=== PATIENT | male | born 1955 | race Caucasian/White ===

== ENCOUNTER 2023-12-19 07:08 | Day surgery (SDC) | payer OTHER ==
[~2023-12-19] VITALS: Ht 182.9 cm; Wt 128.2 kg
[2023-12-19] MEDS ORDERED: ZOCOR20 MG PO (07:40)
[2023-12-19] MEDS ORDERED: LEVSOD100 PO (07:41)
[2023-12-19] MEDS ORDERED: FLUDROCORTISON0.1 M1 PO (07:42)
[2023-12-19] MEDS ORDERED: XYZAL5 MG PO (07:43)
[2023-12-19] MEDS ORDERED: Hydrocortisone10 MG PO (07:43)
[2023-12-19] MEDS ORDERED: DIPH25 (07:45)
[2023-12-19] MEDS ORDERED: Lactated Ringer's 1,000 ML IV ONE ×2 (07:55→07:57)
[2023-12-19] MEDS ORDERED: FentaNYL Citrate 50 MCG/ML 2 ML Injection ONE (08:01)
[2023-12-19] MEDS ORDERED: propofoL 20 ML IV ONE ×2 (08:01)
[2023-12-19] MEDS ORDERED: CeFAZolin Sodium 3,000 MG in NS 100 ML IV SCH (08:05)
[2023-12-19] MEDS ORDERED: CeFAZolin Sodium 2,000 MG VIAL ONE (08:23)
[2023-12-19] MEDS ORDERED: CeFAZolin Sodium 1000 mg Vial ONE ×2 (08:23→08:56)
[2023-12-19] MEDS ORDERED: NS 50 ML IV ONE (08:24)
--- NOTE | 2023-12-19 08:36 | NUR ---
12/19/23 0836 DEIDRA ARAUZ PT ORDERS WERE FOR 3GM ANCEF PREOP; PHARMACY DIDNT HAVE IT MADE IN TIME. ANESTHESIOLOGIST DR FALLON ASKED FOR PT ANCEF 2GM TO ADD TO ANCEF 1GM HE HAS IN OR TO COMPLETE THE ANCEF 3GM TOTAL ORDERED SO TO NOT HOLD PROCEDURE UP LONGER.
[2023-12-19] MEDS ORDERED: Lidocaine 2%-Epineph 1:100000 20 ML MDV INJ ONE (08:53)
[2023-12-19] MEDS ORDERED: Ondansetron HCl 2 MG / ML 2ML Vial ONE (08:56)
[2023-12-19] MEDS ORDERED: Dexamethasone Sod Phos 10 MG/ML 1ML VIAL ONE (08:56)
[2023-12-19] MEDS ORDERED: Ketorolac Tromethamine 30mg Vial ONE (08:56)
[2023-12-19] MEDS ORDERED: HYDROcodone 5-APAP 325 TAB ONE (09:31)
--- NOTE | 2023-12-19 10:31 | NUR ---
12/19/23 1031 Micheal Dorsey PT REPORTED TOLERABLE PAIN UPON D/C. HE APPEARED ALERT, TALKATIVE, AND RELAXED. HE DENIED NAUSE AND EXPRESSED READINESS TO RETURN HOME.
[2023-12-19 10:39] VITALS: BP 110/82
== END 2023-12-19 10:00 | disposition home or self-care (01) ==
LOC: ORSCSDS 07:08
PROVIDERS: Orthopaedic Surgery
PROC: 0JBJ0ZX Excision of Right Hand Subcutaneous Tissue and Fascia, Open Approach, Diagnostic (ICD-10-PCS; principal; 2023-12-19 08:15)
DX: D21.11 Benign neoplasm of connective and other soft tissue of right upper limb, including shoulder (principal); J45.909 Unspecified asthma, uncomplicated; E03.9 Hypothyroidism, unspecified; E27.1 Primary adrenocortical insufficiency; Z79.899 Other long term (current) drug therapy; Z68.38 Body mass index [BMI] 38.0-38.9, adult
CPT/HCPCS: 88305; A9270; J0690; J1100; J1885; J2405; J2704; J3010; J7120

== ENCOUNTER 2024-06-20 08:08 | Day surgery (SDC) | payer OTHER ==
[~2024-06-20] VITALS: Ht 180.3 cm; Wt 126.7 kg
[2024-06-20] VITALS (20 sets, daily range): BP systolic 107–145; BP diastolic 68–94
[~2024-06-20 08:08] MED LIST: BENADRYL25 MG PO; CENTRUM SILVER1 EAC2 PO; DIPH25; FLUDROCORTISON0.1 M1 PO; Hydrocortisone10 MG PO; LEVSOD100 PO; OMEGA-3-FISH O1 EAC3 PO; THERA-D2000 UNIT PO; XYZAL5 MG PO; ZOCOR20 MG PO
[2024-06-20] MEDS ORDERED: Lactated Ringer's 1,000 ML IV SCH ×2 (08:15→10:25)
[2024-06-20] MEDS ORDERED: CeFAZolin Sodium 3,000 MG in NS 100 ML IV SCH ×2 (08:15→19:00)
[2024-06-20] MEDS ORDERED: OxyCODONE HCL 10 MG TABCR PO SCH (08:15)
[2024-06-20] MEDS ORDERED: Vancomycin HCL 1,000 MG in NS 250 ML IV SCH (08:15)
[2024-06-20] MEDS ORDERED: Acetaminophen 500 MG Tab PO SCH ×2 (08:15→16:00)
[2024-06-20] MEDS ORDERED: Tranexamic Acid 1,000 MG in NS 100 ML IV SCH (08:15)
[2024-06-20] MEDS ORDERED: Chlorhexidine Mouth Care 15 ML UDC MT SCH (08:15)
[2024-06-20] MEDS ORDERED: Ropivacaine 0.5% HCl/Pf 123.125 MG,EPINEPHrine HCL 0.25 MG,Ketorolac Tromethamine 15 MG... INFIL SCH (08:15)
[2024-06-20] MEDS ORDERED: CeFAZolin Sodium 3,000 MG VIAL ONE (08:42)
[2024-06-20] MEDS ORDERED: propofoL 20 ML IV ONE ×3 (08:43→13:18)
--- NOTE | 2024-06-20 10:12 | NUR ---
History, Chart, Medications and Allergies reviewed before start of procedure.PRE OP TEACHING DONE. GLASSES TAKEN TO PACU
[2024-06-20] MEDS ORDERED: OxyCODONE HCL 5 MG TAB PO PRN ×2 (10:15→10:20)
[2024-06-20] MEDS ORDERED: Ondansetron HCl 2 MG / ML 2ML Vial IV PRN (10:15)
[2024-06-20] MEDS ORDERED: Magnesium Hydroxide Conc 10 ML UDC PO PRN (10:15)
[2024-06-20] MEDS ORDERED: Metoclopramide HCl 5MG / ML 2ML Vial IV PRN (10:15)
[2024-06-20] MEDS ORDERED: DiphenhydrAMINE HCL 25 MG Cap PO PRN (10:20)
[2024-06-20] MEDS ORDERED: Promethazine HCl 25 MG Tab PO PRN (10:20)
[2024-06-20] MEDS ORDERED: Bisacodyl 10 MG Supp PR PRN (10:20)
[2024-06-20] MEDS ORDERED: FLU VACC TS2024-25(6MOS UP)/PF 45 MCG/0.5 ML SYRINGE IM SCH (10:25)
[2024-06-20] MEDS ORDERED: HYDROmorphone HCl/Pf 1MG SYR IV PRN (10:25)
[2024-06-20] MEDS ORDERED: propofoL 100 ML IV ONE (10:26)
[2024-06-20] MEDS ORDERED: Hydrocortisone Sod Succinate 100 MG Vial ONE (10:26)
--- NOTE | 2024-06-20 10:27 | NUR ---
UP TO BR STEADY ON FEET, VOIDED
[2024-06-20] MEDS ORDERED: Vancomycin HCl 1000 MG ADDvantage ONE (10:33)
[2024-06-20] MEDS ORDERED: Midazolam HCl 1MG / ML 2ML Vial ONE (10:37)
[2024-06-20] MEDS ORDERED: Midazolam HCl 1MG / ML 2ML Vial IV ONE (10:40)
[2024-06-20] MEDS ORDERED: Ondansetron HCl 2 MG / ML 2ML Vial ONE (10:45)
[2024-06-20] MEDS ORDERED: propofoL 50 ML IV ONE (11:47)
[2024-06-20] MEDS ORDERED: Ketorolac Tromethamine 15mg Vial IV SCH (12:00)
--- NOTE | 2024-06-20 12:41 | NUR ---
06/20/24 Lorrie Romano PRIOR TO ARRIVING IN THE OR, PATIENT RECEIVED VANCO 1GM IV IN THE PREOP SETTING.
[2024-06-20] MEDS ORDERED: HYDROmorphone HCl/Pf 1MG SYR ONE ×2 (13:51→14:05)
[2024-06-20] MEDS ORDERED: FentaNYL Citrate 50 MCG/ML 2 ML Injection ONE (13:51)
[2024-06-20] MEDS ORDERED: Ketorolac Tromethamine 30mg Vial ONE (14:20)
--- NOTE | 2024-06-20 15:00 | NUR ---
ARRIVAL TO SURGICAL UNIT VIA HOSPITAL BED, ALERT, ORIENTED, APPROP. ASSESSMENT CHARTED. DENIES N/V. SNACKS & DRINKS GIVEN. C/O HIGH PAIN; WILL MEDICATE ONCE SNACKS GIVEN.
[2024-06-20] MEDS ORDERED: Hydrocortisone 10 MG Tab PO SCH (19:00)
[2024-06-20] MEDS ORDERED: Hydrocortisone 20 MG Tab PO SCH (19:00)
--- NOTE | 2024-06-20 20:05 | NUR ---
SHIFT SUMMARY HAS REFUSED OOB OR TO WORK w/ THERAPY. KEEPS STATING "HE ISN'T READY" & "WE ARE PUSHING HIM" PAIN WELL CONTROLLED. ABLE TO LIFT LEGS & DOING BED EXERCISES. EATING & DRINKING.
[2024-06-20] MEDS ORDERED: Docusate Sodium 100 MG Cap PO SCH (21:00)
[2024-06-20] MEDS ORDERED: Atorvastatin 10 MG Tab PO SCH (21:00)
[2024-06-20] MEDS ORDERED: Vancomycin HCL 1,000 MG in NS 250 ML IV ONE (21:00)
[2024-06-21 04:31] VITALS: BP 145/91
--- NOTE | 2024-06-21 04:35 | NUR ---
SHIFT SUMMARY CHRISTIANE WAS ALERT AND FULLY ORIENTED ON ASSESMENT. PT PAIN MODERATELY WELL CONTROLLED AT THIS TIME. PT HAVING INTERMITTENT NAUSEA, BEGAN VOMITING AROUND 0415, REGLAN ADMINISTERED. PT REPORTS CHILLS, TEMP NOTED TO BE 99.2. PT REFUSED TO AMBULATE TONIGHT, STATING THAT HE WOULD BE WILLING TO TRY GETTING OUT OF BED ON COMING DAY SHIFT. PT EDUCATED ON IMPORTANCE OF EARLY AMBULATION AFTER SURGERY. DRESSING C/D/I, DISTAL SENSATION AND CIRCULATION INTACT.
[2024-06-21] MEDS ORDERED: Levothyroxine Sodium 0.15 MG Tab PO SCH (06:00)
[2024-06-21 06:16] LABS: BASOPHILS ABSOLUTE AUTO 0.07 K/mm3 (0.00-0.23); BASOPHILS PERCENT AUTO 1 % (0-2); EOSINOPHILS ABSOLUTE AUTO 0.05 K/mm3 (0.00-0.68); EOSINOPHILS PERCENT AUTO 0 % (0-6); Hemoglobin 12.9 g/dL (13.5-17.5); IMMATURE GRAN ABSOLUTE AUTO 0.03 K/mm3 (0.00-0.10); IMMATURE GRAN PERCENT AUTO 0 % (0-1); LYMPHOCYTES ABSOLUTE AUTO 2.76 K/mm3 (0.84-5.20); LYMPHOCYTES PERCENT AUTO 21 % (21-46); MONOCYTES ABSOLUTE AUTO 1.06 K/mm3 (0.16-1.47); MONOCYTES PERCENT AUTO 8 % (4-13); Mean Corpuscular HGB 29.1 pg (26.0-34.0); Mean Corpuscular HGB Conc 33.9 g/dL (31.5-36.5); Mean Corpuscular Volume 86 fL (80-100); Mean Platelet Volume 8.7 fL (9.1-12.4); NEUTROPHILS ABSOLUTE AUTO 9.26 K/mm3 (1.96-9.15); NEUTROPHILS PERCENT AUTO 70 % (41-73); Platelet Count 221 K/mm3 (150-400); RDW Coefficient Variation 13.2 % (11.7-14.2); RDW Standard Deviation 40.9 fL (35.1-46.3); Red Blood Cell Count 4.44 M/mm3 (4.30-5.90); White Blood Cell Count 13.23 K/mm3 (4.00-11.30)
[2024-06-21 06:41] LABS: Bun/Creatinine Ratio 13.4 (12.0-20.0); Calcium, Blood 7.9 mg/dL (8.5-10.1); Creatinine, Blood 1.12 mg/dL (0.60-1.20); Magnesium, Blood 1.9 mg/dL (1.6-2.4)
[2024-06-21 07:34] VITALS: BP 112/64
--- NOTE | 2024-06-21 08:32 | NUR ---
DR PAYTON IN TO SEE PT.
[2024-06-21] MEDS ORDERED: Multivitamins/Minerals 1 Tab PO SCH (09:00)
[2024-06-21] MEDS ORDERED: Linezolid 600 MG Tab PO SCH (09:00)
[2024-06-21] MEDS ORDERED: Hydrocortisone 10 MG Tab PO SCH (09:00)
[2024-06-21] MEDS ORDERED: Atorvastatin 10 MG Tab PO SCH (09:00)
[2024-06-21] MEDS ORDERED: Cholecalciferol 1000 Unit Tablet (=25MCG) PO SCH (09:00)
[2024-06-21] MEDS ORDERED: Fludrocortisone Acetate 0.1 MG Tab PO SCH (09:00)
[2024-06-21] MEDS ORDERED: Aspirin 81 MG Chew PO SCH (09:00)
[2024-06-21] MEDS ORDERED: Omega-3 Acid Ethyl Esters 1,000 MG CAP PO SCH (09:00)
[2024-06-21] MEDS ORDERED: LINE600 PO (09:12)
[2024-06-21] MEDS ORDERED: ASPI81CH PO (09:12)
[2024-06-21] MEDS ORDERED: OXYC5 PO (09:15)
[2024-06-21] MEDS ORDERED: Cortef20 MG PO (09:32)
[2024-06-21] MEDS ORDERED: PROM25 PO (09:33)
[2024-06-21 11:10] VITALS: BP 114/64
--- NOTE | 2024-06-21 11:12 | NUR ---
DISCHARGING CLEARED THERAPY. REVIEWED DC INSTRUCTIONS W/PT; VERBALIZED UNDERSTANDING. PROVIDED AQUACEL DRESSINGS. VSS. GETTING DRESSED. RIDE BEDSIDE.
--- NOTE | 2024-06-21 11:40 | NUR ---
DISCHARGED PT LEFT UNIT IN . FAMILY HAD POSSESSIONS, DC PAPERWORK, AQUACELS, AND POLAR PACK IN HAND. MET RIDE OUTSIDE.
[2024-06-22] MEDS ORDERED: ONDA4ODT MM (13:54)
== END 2024-06-21 11:23 | disposition home or self-care (01) ==
LOC: ORSCMMR 08:08 → ORD 11:00 → ORSCMMR 11:00 → SURS 14:47 → ORSCMMR 06-21 11:23 → SURS 06-21 11:23
PROVIDERS: Orthopaedic Surgery
PROC: 0SRC0JA Replacement of Right Knee Joint with Synthetic Substitute, Uncemented, Open Approach (ICD-10-PCS; principal; 2024-06-20 11:00)
DX: M17.11 Unilateral primary osteoarthritis, right knee (principal); G47.33 Obstructive sleep apnea (adult) (pediatric); K21.9 Gastro-esophageal reflux disease without esophagitis; E03.9 Hypothyroidism, unspecified; E27.1 Primary adrenocortical insufficiency; E66.9 Obesity, unspecified; Z68.39 Body mass index [BMI] 39.0-39.9, adult; E78.00 Pure hypercholesterolemia, unspecified; Z79.899 Other long term (current) drug therapy
CPT/HCPCS: 36415; 73560-RT; 80048; 83735; 85025; 94762; 97110; 97116; 97162; A9270; C1713; C1776; J0171; J0690; J0735; J1171; J1720; J1885; J2250; J2405; J2704; J2765; J2795; J3010; J3370; J7050; J7120

== ENCOUNTER 2024-06-22 10:13 | Emergency (ER) | payer OTHER ==
[~2024-06-22] VITALS: Ht 182.9 cm; Wt 129.3 kg
[~2024-06-22 10:13] MED LIST changes: +ASPI81CH PO; +Cortef20 MG PO; +LINE600 PO; +OXYC5 PO; +PROM25 PO
[2024-06-22] MEDS ORDERED: Ondansetron HCl 2 MG / ML 2ML Vial IV ONE (11:10)
[2024-06-22 11:16] LABS: BASOPHILS ABSOLUTE AUTO 0.08 K/mm3 (0.00-0.23); BASOPHILS PERCENT AUTO 1 % (0-2); EOSINOPHILS ABSOLUTE AUTO 0.07 K/mm3 (0.00-0.68); EOSINOPHILS PERCENT AUTO 1 % (0-6); Hematocrit 37.6 % (37.0-53.0); Hemoglobin 13.2 g/dL (13.5-17.5); IMMATURE GRAN ABSOLUTE AUTO 0.04 K/mm3 (0.00-0.10); IMMATURE GRAN PERCENT AUTO 0 % (0-1); LYMPHOCYTES ABSOLUTE AUTO 1.72 K/mm3 (0.84-5.20); LYMPHOCYTES PERCENT AUTO 15 % (21-46); MONOCYTES ABSOLUTE AUTO 0.76 K/mm3 (0.16-1.47); MONOCYTES PERCENT AUTO 6 % (4-13); Mean Corpuscular HGB 29.3 pg (26.0-34.0); Mean Corpuscular HGB Conc 35.1 g/dL (31.5-36.5); Mean Corpuscular Volume 83 fL (80-100); Mean Platelet Volume 8.9 fL (9.1-12.4); NEUTROPHILS ABSOLUTE AUTO 9.22 K/mm3 (1.96-9.15); NEUTROPHILS PERCENT AUTO 78 % (41-73); Platelet Count 238 K/mm3 (150-400); RDW Coefficient Variation 13.1 % (11.7-14.2); RDW Standard Deviation 39.5 fL (35.1-46.3); Red Blood Cell Count 4.51 M/mm3 (4.30-5.90); White Blood Cell Count 11.89 K/mm3 (4.00-11.30)
[2024-06-22 11:40] LABS: Albumin, Blood 3.2 g/dL (3.4-5.0); Albumin/Globulin Ratio 0.9 (0.8-1.8); Bilirubin, Total 2.5 mg/dL (0.1-1.0); Bun/Creatinine Ratio 10.7 (12.0-20.0); Calcium, Blood 8.4 mg/dL (8.5-10.1); Creatinine, Blood 0.84 mg/dL (0.60-1.20); Globulin, Blood 3.4 g/dL (2.2-4.0); Potassium, Blood 3.6 mmol/L (3.5-5.5); Total Protein, Blood 6.6 g/dL (6.4-8.2)
[2024-06-22] MEDS ORDERED: Lactated Ringer's 1,000 ML IV ONE (12:55)
[2024-06-22] MEDS ORDERED: Hydrocortisone 10 MG Tab PO ONE (12:55)
[2024-06-22] MEDS ORDERED: OxyCODONE HCL 5 MG TAB PO ONE (12:55)
[2024-06-22] MEDS ORDERED: ONDA4ODT MM (13:54)
[2024-06-22 14:30] VITALS: BP 148/87
== END 2024-06-22 15:00 | disposition home or self-care (01) ==
LOC: ER 10:13
PROVIDERS: Student in an Organized Health Care Education/Training Program
DX: R11.2 Nausea with vomiting, unspecified (principal); T40.2X5A Adverse effect of other opioids, initial encounter; Z96.651 Presence of right artificial knee joint; Z88.2 Allergy status to sulfonamides; Z79.899 Other long term (current) drug therapy; Z79.82 Long term (current) use of aspirin; I10 Essential (primary) hypertension; E03.9 Hypothyroidism, unspecified; E78.5 Hyperlipidemia, unspecified; G47.33 Obstructive sleep apnea (adult) (pediatric)
CPT/HCPCS: 71046; 80053; 85025; 93005; 93010; 96374; 99284-25; A9270; J2405; J7120

== ENCOUNTER 2024-09-09 16:59 | Emergency (ER) | payer OTHER ==
[~2024-09-09] VITALS: Ht 182.9 cm; Wt 122.0 kg
[~2024-09-09 16:59] MED LIST changes: +ONDA4ODT MM
[2024-09-09 17:40] LABS: BASOPHILS ABSOLUTE AUTO 0.05 K/mm3 (0.00-0.23); BASOPHILS PERCENT AUTO 1 % (0-2); EOSINOPHILS ABSOLUTE AUTO 0.14 K/mm3 (0.00-0.68); EOSINOPHILS PERCENT AUTO 1 % (0-6); Hematocrit 42.3 % (37.0-53.0); Hemoglobin 14.8 g/dL (13.5-17.5); IMMATURE GRAN ABSOLUTE AUTO 0.02 K/mm3 (0.00-0.10); IMMATURE GRAN PERCENT AUTO 0 % (0-1); LYMPHOCYTES ABSOLUTE AUTO 2.84 K/mm3 (0.84-5.20); LYMPHOCYTES PERCENT AUTO 29 % (21-46); MONOCYTES ABSOLUTE AUTO 0.55 K/mm3 (0.16-1.47); MONOCYTES PERCENT AUTO 6 % (4-13); Mean Corpuscular HGB 28.7 pg (26.0-34.0); Mean Corpuscular Volume 82 fL (80-100); NEUTROPHILS ABSOLUTE AUTO 6.36 K/mm3 (1.96-9.15); NEUTROPHILS PERCENT AUTO 64 % (41-73); Platelet Count 298 K/mm3 (150-400); RDW Coefficient Variation 13.1 % (11.7-14.2); RDW Standard Deviation 38.7 fL (35.1-46.3); Red Blood Cell Count 5.16 M/mm3 (4.30-5.90); White Blood Cell Count 9.96 K/mm3 (4.00-11.30)
[2024-09-09 17:53] LABS: Influenza A, PCR NEGATIVE (NEGATIVE); Influenza B, PCR NEGATIVE (NEGATIVE); Resp Syncytial Virus, PCR NEGATIVE (NEGATIVE); SARS-Cov-2 (COVID-19) PCR, MMC NEGATIVE (NEGATIVE)
[2024-09-09 18:14] LABS: Albumin, Blood 3.9 g/dL (3.4-5.0); Albumin/Globulin Ratio 1.3 (0.8-1.8); Bilirubin, Total 1.6 mg/dL (0.1-1.0); Bun/Creatinine Ratio 10.3 (12.0-20.0); Calcium, Blood 8.9 mg/dL (8.5-10.1); Creatinine, Blood 0.97 mg/dL (0.60-1.20); Globulin, Blood 3.1 g/dL (2.2-4.0); Potassium, Blood 3.2 mmol/L (3.5-5.5)
[2024-09-09] MEDS ORDERED: NS 1,000 ML IV SCH (18:40)
[2024-09-09] MEDS ORDERED: Ondansetron HCl 2 MG / ML 2ML Vial IV ONE (18:40)
[2024-09-09 20:00] VITALS: BP 143/100
[2024-09-09 20:02] LABS: Magnesium, Blood 1.9 mg/dL (1.6-2.4); Phosphorus, Blood 2.8 mg/dL (2.5-4.9)
[2024-09-09] MEDS ORDERED: Potassium Chloride 20 MEQ/15 ML UDC PO ONE (20:10)
== END 2024-09-09 21:06 | disposition home or self-care (01) ==
LOC: ER 16:59
PROVIDERS: Physician Assistant; Student in an Organized Health Care Education/Training Program
DX: K52.9 Noninfective gastroenteritis and colitis, unspecified (principal); E87.6 Hypokalemia; I10 Essential (primary) hypertension; E03.9 Hypothyroidism, unspecified; E78.5 Hyperlipidemia, unspecified; G47.33 Obstructive sleep apnea (adult) (pediatric); E27.1 Primary adrenocortical insufficiency; Z88.2 Allergy status to sulfonamides; Z79.890 Hormone replacement therapy; Z79.52 Long term (current) use of systemic steroids; Z79.82 Long term (current) use of aspirin; Z79.899 Other long term (current) drug therapy; Z59.89 Other problems related to housing and economic circumstances
CPT/HCPCS: 0241U; 80053; 83690; 83735; 84100; 85025; 93005; 93010; 96374; 99284-25; A9270; J2405; J7030